=== PATIENT | male | born 1995 | race Two or more races ===

== ENCOUNTER 2018-12-30 06:13 | Emergency (ER) | payer MEDICAID ==
[2018-12-30] MEDS ORDERED: DOCUSATE SODIUM 100 MG CAPSULE LFT_EAR ONE (07:43)
--- NOTE | 2018-12-30 09:21 | ER Document Report ---
ED General - General Chief Complaint: Ear Pain Stated Complaint: LEFT EAR PAIN Time Seen by Provider: 12/30/18 07:36 TRAVEL OUTSIDE OF THE [place] IN LAST 30 DAYS: No - HPI Notes: Patient is a 23-year-old male who presents to the emergency for evaluation of left ear pain. He states it started yesterday. He denies any fevers or chills. No nausea or vomiting. No runny nose or sore throat. He does have a history of hearing loss. He states that sometimes when pushing his hearing aid and it seems to hurt more. Had no drainage from the ear. Otherwise no acute complaints. - Related Data Allergies/Adverse Reactions: No Known Allergies Allergy (Verified 07/08/12 18:28) Past Medical History - General Information source: Patient - Social History Smoking Status: Never Smoker Family History: Reviewed & Not Pertinent Patient has suicidal ideation: No Patient has homicidal ideation: No EENT Medical History: Reports: Other - Deafness Renal/ Medical History: Denies: Hx Peritoneal Dialysis - Immunizations Hx Diphtheria, Pertussis, Tetanus Vaccination: Yes Review of Systems - Review of Systems Constitutional: No symptoms reported EENT: See HPI Cardiovascular: No symptoms reported Respiratory: No symptoms reported Gastrointestinal: No symptoms reported Genitourinary: No symptoms reported Musculoskeletal: No symptoms reported Skin: No symptoms reported Neurological/Psychological: No symptoms reported Physical Exam - Vital signs Vitals: Temp Pulse Resp BP Pulse Ox 97.6 F 66 16 122/68 100 12/30/18 06:14 12/30/18 06:14 12/30/18 06:14 12/30/18 06:14 12/30/18 06:14 - Notes Notes: Head is normocephalic and atraumatic. Pupils are equal, round, reactive to light. Examination of the left ear yields no obvious deformity or abnormality. External auditory canal reveals impacted cerumen. A small area of the TM, 10 to 11 o'clock position, is able to be visualized and is within normal limits. Oral mucosa moist. Pharynx without erythema or exudate. Neck is supple without thyromegaly or adenopathy. Heart is regular rate and rhythm, lungs are clear to auscultation bilaterally. Course - Re-evaluation Re-evalutation: 12/30/18 09:20 Patient presents to the emergency department for evaluation of ear pain. He does have a cerumen impaction. Colace and irrigation were ordered. Pending reevaluation. 12/30/18 09:51 Left ear reexamined after irrigation. Significant amount of cerumen removed. There is significant edema in the external auditory canal. Given his pain, we will go ahead and treat with antibiotic drops. We will treat him with Ciprodex. He is to follow-up with primary care, return to the ED with worsening or new concerning symptoms. - Vital Signs Vital signs: Temp Pulse Resp BP Pulse Ox 97.6 F 66 16 122/68 100 12/30/18 06:14 12/30/18 06:14 12/30/18 06:14 12/30/18 06:14 12/30/18 06:14 Discharge - Discharge Clinical Impression: Otalgia of left ear Otitis externa Qualifiers: Otitis externa type: unspecified type Chronicity: acute Laterality: left Qualified Code(s): H60.502 - Unspecified acute noninfective otitis externa, left ear Condition: Stable Disposition: HOME, SELF-CARE Instructions: Use of Ear Drops ([facility]), Otitis Externa ([facility]) Additional Instructions: Use drops as instructed for 1 week. Follow-up with primary care next week. Return to the emergency department with worsening or new concerning symptoms. Prescriptions: Ciprofloxacin HCl/Dexameth [Ciprodex Otic Suspension 7.5 ml Bottle] 4 drop OS BID 7 Days #1 bottle
[2018-12-30 10:02] VITALS: BP 112/79
== END 2018-12-30 09:59 | disposition home or self-care (01) ==
LOC: ER 06:13
DX: H60.502 Unspecified acute noninfective otitis externa, left ear (principal); H92.02 Otalgia, left ear
CPT/HCPCS: 99282; J3490